=== PATIENT | male | born 1955 | race Caucasian/White ===

== ENCOUNTER 2023-11-22 18:36 | Emergency (ER) | payer BC, SELFPAY ==
[2023-11-22 18:40] VITALS: BP 139/73
--- NOTE | 2023-11-22 19:43 | ED.GENMED ---
History of Present Illness
General
Chief Complaint: Bowel Problem
Source: patient
Exam Limitations: none
Time Seen by Provider: 11/22/23 19:04
Nursing documentation reviewed up to this point in time: agreed with
Travel History
Have you had any contact with someone who has COVID-19?: No
Do you have any symptoms of coronavirus? Fever > 100 degrees, chills, cough, shortness of breath, sore throat, loss of taste or smell, muscle aches, or headache?: No
History of Present Illness
History of Present Illness:
Patient to ED with complaint of lower abdominal pain, gas, chest pain/pressure x 4 days. States he has been waking up at night feeling like he is in afib. Reports feeling like heart is racing at times. Brought to ED by spouse for eval. Denies
fever/chillls Reports poor appetite due to lower abdominal discomfort.
Past History
Past History
ED Past Medical History: HTN
ED Past Surgical History: None
Social History
Tobacco: Non-smoker
Alcohol: None
Employment: Employed
Review of Systems
Review of Systems
Allergies reviewed?: Yes
All Other Systems: ROS reviewed and negative except as documented in HPI and ROS
Constitutional: Reports no symptoms
EENT: Reports no symptoms
Respiratory: Reports no symptoms
Cardiac: Reports palpitations and other (feels like heart is racing. )
ABD/GI: Reports abdominal pain (lower abdominal pain) and anorexia
: Reports no symptoms
Musculoskeletal: Reports no symptoms
Skin: Reports no symptoms
Neurological: Reports no symptoms
Psychiatric: Reports no symptoms
Phy Exam
General Physical Exam
General Presentation: well appearing and no apparent distress
General age: appears stated age
General Skin: warm and dry
General Habitus: normal
General Mental: alert
Cardiovascular Exam
Cardiovascular Exam: regular rate/rhythm and no edema
Pulmonary Exam
Pulmonary Exam: lungs clear and no respiratory distress
Gastrointestinal Exam
Gastrointestinal Exam: normal bowel sounds, soft, no organomegaly, no pulsatile mass, non distended and no cva tenderness
Palpation: left lower quadrant: Mild tenderness and right lower quadrant: Mild tenderness
Musculoskeletal Exam
Musculoskeletal Exam: full ROM and neuro vasc intact
Skin Exam
Skin Exam: normal color, warm/dry and no rash
Psychiatric Exam
Psychiatric Exam: normal mood/affect
Course
Orders/Labs/Results
Orders:
Orders
11/22/23 18:43
Electrocardiogram (*1) Urgent
Reason for Study: Palpitations
11/22/23 18:44
EKG- Treatment ONCE
11/22/23 19:42
0.9% Sodium Chloride 1000 ml [Nss] 1,000 ml IV BOLUS
Iohexol [Omnipaque] See Protocol PO NOW STA
11/22/23 19:43
CT Abd/pel W Iv And Oral Contr Urgent
Comment:
Reason For Exam: bilateral lower abd. pain
11/22/23 19:48
Complete Blood Count/With Diff Urgent
Comprehensive Metabolic Panel Urgent
Lipase Urgent
11/22/23 20:23
Troponin I Urgent
11/22/23 22:41
Urinalysis Reflex To Culture Urgent
Date Specimen was Collected: 11/22/23
Time Specimen was Collected: 21:29
11/22/23 23:44
Potassium Chloride Powder [Klor-Con] 20 meq PO NOW STA
Abnormal Lab Results
11/22/23 11/22/23
19:48 22:41
WBC 11.9 H 10^3/uL
(4.8-10.8)
RBC 4.46 L 10^6/uL
(4.70-6.10)
MCV 95.5 H fL
(80.0-94.0)
MCH 33.9 H pg
(27.0-31.0)
MPV 11.7 H fL
(7.4-10.4)
Absolute Neuts (auto) 9.2 H 10^3/uL
(1.4-6.5)
Absolute Monos (auto) 0.8 H 10^3/uL
(0.1-0.6)
Neutrophils % 77.0 H %
(42.2-75.2)
Lymphocytes % 15.2 L %
(20.5-51.1)
Sodium 134 L mmol/L
(135-145)
Potassium 3.2 L mmol/L
(3.5-5.1)
Chloride 92 L mmol/L
(98-107)
BUN 30 H mg/dl
(9-20)
Glucose 119 H mg/dl
(70-99)
Calcium 10.3 H mg/dl
(8.4-10.2)
Total Bilirubin 2.0 H mg/dl
(0.2-1.3)
Albumin 5.2 H g/dl
(3.5-5.0)
Urine Ketones 2+ A
(Negative)
11/22/23 19:48
11/22/23 19:48
Vital Signs
Initial and Last Documented VS:
Initial Vital Signs
Temp Pulse Resp BP Pulse Ox
98.1 F 63 16 139/73 97
11/22/23 18:40 11/22/23 18:40 11/22/23 18:40 11/22/23 18:40 11/22/23 18:40
Last Documented Vital Signs
Temp Pulse Resp BP Pulse Ox
98.1 F 65 17 146/54 99
11/22/23 23:04 11/22/23 23:30 11/22/23 23:45 11/22/23 23:04 11/22/23 23:04
*Critical Care Note
Total Time (30-74mins, 75-104mins- exclusive of procedures): Not Applicable
ED Attending Note
-
Portions of this chart may have been created with voice recognition software.� Occasional wrong word or��sound alike� substitutions may have occurred due to the inherent limitations of voice recognition software.
Discharge Plan
Departure
Patient Disposition: Home (Routine Discharge)
Date of Disposition: 11/22/23
Time of Disposition: 23:45
Patient with high blood pressure during this ER visit?: No
Condition: Good
Covid-19: Not Applicable
Discharge Problem:
Enteritis
Instructions: Clear Liquid Diet, Abdominal Pain
Prescriptions:
New
potassium chloride 20 mEq tablet extended release
20 meq PO DAILY Qty: 2 0RF
Referrals:
Glenn Broussard, DO [Family Provider] - Follow up in 2-3 days
Activity Restrictions/Additional Instructions:
Return to the emergency department immediately for any changes in/worsening of your symptoms.
Interventions
Interventions:
*Risk Screen - Suicide Last Done: 11/22/23 20:26
*General Assessment Last Done: 11/22/23 20:26
*Neglect/Abuse Screening Last Done: 11/22/23 20:26
ED- Fall Risk Assessment Last Done: 11/22/23 20:27
*ED COVID-19 Vaccine History Last Done: 11/22/23 20:26
*Nursing Disposition Last Done: 11/23/23 00:08
GV-[id number] Assessment Last Done: 11/22/23 19:57
Discharge Date and Time
Discharge Date/Time: 11/23/23 00:09
Print Language: NEPALI
[2023-11-22] MEDS: NSS 1000 IV (19:49)
[2023-11-22] MEDS: OMNIPAQUE 50 ML PO (19:53)
[2023-11-22 20:08] LABS: ALT (SGPT) 23 U/L (0-50); AST (SGOT) 37 U/L (17-59); Albumin 5.2 g/dl (3.5-5.0); Alkaline Phosphatase 58 U/L (38-126); Blood Urea Nitrogen 30 mg/dl (9-20); Calcium 10.3 mg/dl (8.4-10.2); Carbon Dioxide 28 mmol/L (22-30); Chloride 92 mmol/L (98-107); Glucose 119 mg/dl (70-99); Lipase 168 U/L (23-300); Potassium 3.2 mmol/L (3.5-5.1); Sodium 134 mmol/L (135-145); Total Protein 8.1 g/dl (6.3-8.2); eGFR > 60.00
[2023-11-22 20:25] VITALS: BMI 19.7
[2023-11-22 20:53] LABS: Troponin I < 0.012 ng/ml
[2023-11-22 21:13] LABS: % Basophils 0.8 % (0-2); % Eosinophils 0.1 % (0-6); % Immature Granulocytes 0.3 % (0-0.5); % Lymphocytes 15.2 % (20.5-51.1); % Monocytes 6.6 % (1.7-9.3); Absolute Basophils 0.1 10^3/uL (0-0.2); Absolute Lymphocytes 1.8 10^3/uL (1.2-3.4); Absolute Monocytes 0.8 10^3/uL (0.1-0.6); Absolute Neutrophils 9.2 10^3/uL (1.4-6.5); Hematocrit 42.6 % (39.0-52.0); Hemoglobin 15.1 g/dL (13.0-18.0); Mean Corp Hgb Conc. 35.4 g/dL (33.0-37.0); Mean Corpuscular Hgb 33.9 pg (27.0-31.0); Mean Corpuscular Volume 95.5 fL (80.0-94.0); Mean Platelet Volume 11.7 fL (7.4-10.4); Nucleated Red Blood Cells % 0 % (-); Red Blood Cell Count 4.46 10^6/uL (4.70-6.10); Red Cell Dist. Width 12.3 % (11.5-14.5); White Blood Cell Count 11.9 10^3/uL (4.8-10.8)
[2023-11-22 21:14] LABS: Platelet Count 171 10^3/uL (130-400)
[2023-11-22 21:30] VITALS: BP 131/79
[2023-11-22 22:54] LABS: Urine Albumin Negative (Neg - Trace); Urine Bilirubin Negative (Negative); Urine Character Clear (Clear); Urine Color Yellow; Urine Glucose Negative (Negative); Urine Ketone 2+ (Negative); Urine Leukocyte Negative (Negative); Urine Nitrite Negative (Negative); Urine Occult Blood Negative (Negative); Urine Urobilinogen Negative (Neg - 1+); Urine pH 6.5 (5.0-9.0)
[2023-11-22 23:04] VITALS: BP 146/54
[2023-11-22] MEDS: KLOR-CON 20 MEQ PO (23:54)
== END 2023-11-23 00:09 | disposition home or self-care (01) ==
LOC: EMR 18:36
PROVIDERS: Nurse Practitioner; EMERGENCY PHYSICIAN Emergency Medicine; FAMILY PHYSICIAN Family Medicine
DX: K52.9 Noninfective gastroenteritis and colitis, unspecified (principal); R00.2 Palpitations; I10 Essential (primary) hypertension; I48.91 Unspecified atrial fibrillation; Z88.0 Allergy status to penicillin
CPT/HCPCS: 99285; 96360; 74177; 80053; 81003; 83690; 84484; 85025; 93005; Q9967